=== PATIENT | male | born 1930 | race Caucasian/White ===

== ENCOUNTER → 2016-06-26 | Outpatient (CLI) | payer MEDICARE, OTHER ==
[~2016-06-26] MED LIST: AMOXICILLIN500 MG PO; ARTIFICIAL TEAR15 M2 OPHTH; ASPIRIN LO-DOSE81 MG PO; CORDARONE,PACE200 MG PO; COZAAR50 MG; COZAAR50 MG PO; ELIQUIS2.5 MG PO; HYDRODIURIL25 MG PO; IMDUR60 MG PO; LASIX40 MG PO; LEVOTHROID (S150 MCG PO; LOPRESSOR50 MG PO; MIRALAX17 GM PO; NITROSTAT0.4 MG SL; NORVASC5 MG PO; NOVOLIN-N100 UNIT/M SUB-Q; NOVOLOG FL100 UNIT/1 SUB-Q; OXYGEN M-15 INH; PEPCID20 MG PO; PROSCAR5 MG PO; PROTONIX40 MG PO; SPIRIVA HANDIHA1 KIT INH; TYLENOL EXTRA500 MG PO; ZAROXOLYN5 MG PO; ZOCOR40 MG PO; ZYLOPRIM100 MG PO
== END | disposition disaster alternative care site (69) ==
LOC: GRAD 15:22
DX: N18.4 Chronic kidney disease, stage 4 (severe) (principal); Q61.02 Congenital multiple renal cysts

== ENCOUNTER → 2016-06-26 | Outpatient (CLI) | payer MEDICARE, OTHER | END | disposition disaster alternative care site (69) | LOC: LGSMG 16:37 | DX: N18.4 Chronic kidney disease, stage 4 (severe) (principal) ==

== ENCOUNTER → 2016-08-19 | Outpatient (CLI) | payer MEDICARE, OTHER | END | disposition disaster alternative care site (69) | LOC: GRAD 08:56 | DX: M86.9 Osteomyelitis, unspecified (principal); Q89.8 Other specified congenital malformations; M85.88 Other specified disorders of bone density and structure, other site; I70.0 Atherosclerosis of aorta ==

== ENCOUNTER 2016-09-28 10:57 | Emergency (ER) | payer MEDICARE, OTHER ==
--- NOTE | ~2016-09-28 | ER ---
PATIENT'S NAME: INDIO JUAREZ [facility] AGE: 85 Y [address] ROOM: [place] [address] LOCATION: [facility] ADMIT DATE: 09/28/2016 ER/Outpatient Report DISCHARGE DATE: 09/28/2016 FAMILY PHYSICIAN: Antonio Hoover MD ATTENDING PHYSICIAN: Samantha Rushing Time of Arrival: 1057 hours. Time of Evaluation/Seen: 1112 hours. IDENTIFICATION: An 85-year-old male. CHIEF COMPLAINT: Fall. HISTORY OF PRESENT ILLNESS: The patient caught his pants on the wheelchair and fell forward and to the right, striking his head posterior right on cabinets. No loss of consciousness. He also twisted his right knee, and has a skin tear on his right arm. He has a little bit of right hip pain as well. ALLERGIES: LISINOPRIL. CURRENT MEDICATIONS: 1. Eliquis. 2. Allopurinol. 3. Imuran. 4. Amlodipine. 5. Aspirin. 6. Proscar. 7. Lasix. 8. NovoLog. 9. Imdur. 10. Levothyroxine. 11. Zaroxolyn. 12. Lopressor. 13. Nitroglycerin. 14. Protonix. 15. Artificial tears. 16. Simvastatin. MEDICAL PROBLEMS: 1. Previous right knee pain with effusion. 2. Osteomyelitis of the left wrist. PATIENT'S NAME: INDIO JUAREZ V [facility] AGE: 85 Y [address] ROOM: [place] [address] LOCATION: [facility] ADMIT DATE: 09/28/2016 ER/Outpatient Report DISCHARGE DATE: 09/28/2016 FAMILY PHYSICIAN: Anotnio Hoover MD ATTENDING PHYSICIAN: Samantha Rushing 3. Coronary artery disease. 4. Diabetes mellitus, type 2. 5. Chronic atrial fibrillation, on chronic anticoagulation. 6. Dyslipidemia. 7. Chronic kidney disease. 8. Hypertension. 9. Nocturnal hypoxemia. PAST SURGICAL HISTORY: Prior surgeries: 1. Left wrist bone excision. 2. CABG. 3. Bilateral hip surgery. 4. Multiple left heart catheterizations. 5. Tonsillectomy. 6. Clavicle surgery. 7. Bilateral cataracts. SOCIAL HISTORY: The patient lives with his daughter here in [place]. Tobacco use, denies. Alcohol use, denies. Drug use, denies. REVIEW OF SYSTEMS: All systems reviewed and negative other than what is noted in the HPI. PHYSICAL EXAMINATION: VITAL SIGNS: Height 5 feet 6 inches, weight 89 kg. Blood pressure 157/68, pulse 59, respiratory rate 16, temperature 97.7, and saturations 95% on room air. GENERAL: Pleasant male in no acute distress. HEENT: Head; normocephalic. Eyes; pupils equal and reactive to light and accommodation. Extraocular movements intact. Nose; mucosa pink. No lesions. Mouth; no lesions. Pharynx, benign. NECK: Supple. No tenderness to palpation to cervical spine. Posterior right scalp hematoma. LUNGS: Clear to auscultation. Breath sounds are equal. HEART: Regular rate and rhythm. No murmur, rub, or gallop. ABDOMEN: Soft, nondistended, and nontender. SKIN: [place], warm, and dry. The patient has a skin tear on his right upper extremity that was dressed with Vaseline gauze. No tenderness to pelvic rock. Minimal tenderness to his right hip. No palpable deformities. No bruising or ecchymosis. NEUROLOGIC: Neurovascularly, patient is alert and oriented x4. Cranial nerves 2 through 12 grossly intact. Motor strength 5/5 throughout. Sensation is intact to light touch bilaterally. The patient has a right knee effusion, PATIENT'S NAME: INDIO JUAREZ V [facility] AGE: 85 Y [address] ROOM: [place] [address] LOCATION: [facility] ADMIT DATE: 09/28/2016 ER/Outpatient Report DISCHARGE DATE: 09/28/2016 FAMILY PHYSICIAN: Antonio Hoover MD ATTENDING PHYSICIAN: Samantha Rushing tender to palpation. IMAGING STUDIES: Right knee x-ray, three-view, moderate joint effusion. No acute fracture or dislocation. Pending Radiology over-read. Right pelvis and hip; no acute findings. Head CT without contrast, normal. Cervical spine CT without contrast; degenerative changes. No acute fractures. IMPRESSION: 1. Right knee effusion and pain. 2. Right skin tear. 3. Head injury. PLAN: Head injury precautions, Jake wrap, right knee; walker or wheelchair and toe- touch weightbearing only until recheck with Dr. Allen. Ice and elevate. Tylenol for pain. Follow up with Dr. Allen on Friday. Follow up sooner if any problems or concerns. The patient and his daughter understand and agree, and all questions have been answered. MD CARLOS LIVINGSTON/dalila /[id number] d: 09/28/161917 t: 09/29/16 1449, OUTPATIENT REPORT
[~2016-09-28 10:57] MED LIST changes: -COZAAR50 MG PO
== END 2016-09-28 12:55 | disposition disaster alternative care site (69) ==
LOC: GACC 10:57
DX: S41.111A Laceration without foreign body of right upper arm, initial encounter (principal); S00.03XA Contusion of scalp, initial encounter; M25.461 Effusion, right knee; M25.561 Pain in right knee; M86.9 Osteomyelitis, unspecified; I25.10 Atherosclerotic heart disease of native coronary artery without angina pectoris; E78.5 Hyperlipidemia, unspecified; E11.22 Type 2 diabetes mellitus with diabetic chronic kidney disease; I12.9 Hypertensive chronic kidney disease with stage 1 through stage 4 chronic kidney disease, or unspecified chronic kidney disease; N18.3 Chronic kidney disease, stage 3 (moderate); E03.9 Hypothyroidism, unspecified; I48.0 Paroxysmal atrial fibrillation; Z95.1 Presence of aortocoronary bypass graft; Z90.89 Acquired absence of other organs; Z98.890 Other specified postprocedural states; Z88.8 Allergy status to other drugs, medicaments and biological substances; Z79.01 Long term (current) use of anticoagulants; Z79.82 Long term (current) use of aspirin; Z79.4 Long term (current) use of insulin; Z79.899 Other long term (current) drug therapy; W01.190A Fall on same level from slipping, tripping and stumbling with subsequent striking against furniture, initial encounter

== ENCOUNTER 2016-10-06 13:35 | Emergency (ER) | payer MEDICARE, OTHER ==
--- NOTE | ~2016-10-06 | ER ---
PATIENT'S NAME: INDIO JUAREZ V [facility] AGE: 85 Y [address] ROOM: [place] [address] LOCATION: [facility] ADMIT DATE: 10/06/2016 ER/Outpatient Report DISCHARGE DATE: 10/06/2016 FAMILY PHYSICIAN: Antonio Hoover MD ATTENDING PHYSICIAN: Layo Yeung Time of Arrival: 1335 hours. Time of Evaluation: 1340 hours. CHIEF COMPLAINT: Headache, right leg pain. HISTORY OF PRESENT ILLNESS: The patient is an 85-year-old male, who presents to the emergency department today with a chief complaint of headache and right leg pain. He reports he fell about 1 week prior to arrival. He has had pain in his right leg since he did get his knee drained by Dr. Moon, but he is complaining of some pain in his foot as well as up into his upper hip area. He also reports he has had a mild headache. It is a dull type headache. It is not sudden onset. Not the worst headache of his life. Denies any fevers or chills. No nausea or vomiting. No diarrhea or constipation. No abdominal pain. No chest pain. No shortness of breath. PAST MEDICAL HISTORY: Right knee with effusion; osteomyelitis of the left wrist; coronary artery disease; diabetes mellitus type 2; chronic atrial fibrillation, on chronic anticoagulation, Eliquis; dyslipidemia; chronic kidney disease; hypertension; nocturnal hypoxemia. PAST SURGICAL HISTORY: Left wrist bone excision, CABG, bilateral hip surgery, multiple left heart catheterization, tonsillectomy, clavicle surgery, bilateral cataracts. SOCIAL HISTORY: The patient lives with his daughter here in [place]. Denies any tobacco, alcohol, or illicit drug use. ALLERGIES: NO KNOWN DRUG ALLERGIES. MEDICATIONS: Please see list. PRIMARY CARE DOCTOR: Dr. Hoover. PATIENT'S NAME: INDIO JUAREZ V [facility] AGE: 85 Y [address] ROOM: [place] [address] LOCATION: [facility] ADMIT DATE: 10/06/2016 ER/Outpatient Report DISCHARGE DATE: 10/06/2016 FAMILY PHYSICIAN: Antonio Hoover MD ATTENDING PHYSICIAN: Layo Yeung REVIEW OF SYSTEMS: All systems are reviewed by myself and are negative with the exception of those discussed in the HPI and past medical history. PHYSICAL EXAMINATION: VITAL SIGNS: Weight 88 kg, blood pressure 125/61, pulse 68, respiratory rate 16, temperature 98.9, oxygen saturation 94% on room air. GENERAL: The patient is an 85-year-old male, who appears stated age, in no acute distress. HEENT: Normocephalic, atraumatic. Pupils are equal, round, and reactive to light. Extraocular muscles are intact. Nares are patent bilaterally. TMs are clear. Oropharynx is clear. NECK: Supple. There is no nuchal rigidity. CARDIOVASCULAR: Regular rate and rhythm. No murmurs, rubs, or gallops. LUNGS: Clear to auscultation bilaterally. No wheezes, rales, or rhonchi. ABDOMEN: Soft, nontender, and nondistended. No rebound, rigidity, or guarding. MUSCULOSKELETAL: The patient has diffuse tenderness to palpation about his right ankle and right foot. He does have some mild tenderness to palpation of the right upper femur region as the right knee is also mildly swollen. There is a bandage in place from previous aspiration. It does appear clean, dry, and intact without evidence of erythema. SKIN: Warm and dry. There are no rashes or lesions noted. LABORATORY DATA AND X-RAYS: CT scan of the brain is obtained. I have discussed results with the radiologist, is negative. X-rays are obtained. They are interpreted by myself, show no evidence of acute fracture or dislocation. Further over-read is pending. IMPRESSION: 1. Right lower extremity pain, suspect musculoskeletal. 2. Cephalgia. 3. Initial visit. EMERGENCY DEPARTMENT COURSE: The patient was brought back to the examination room. Seen and evaluated by myself. Imaging is obtained as described above. The patient's headache is a while. It is not sudden in onset. This is not worst of his life. He is low risk for subarachnoid hemorrhage. Headache has been mild ever since his injury. The patient may have had a concussion with some mild postconcussive syndrome symptoms. I have discussed this with the patient's daughter. I have asked he follows up with Dr. Moon's, Orthopedic Surgery, in 3 to 5 days for re-evaluation if he continues to have pain. I have discussed following up PATIENT'S NAME: INDIO JUAREZ V [facility] AGE: 85 Y [address] ROOM: [place], [place] [address] LOCATION: [facility] ADMIT DATE: 10/06/2016 ER/Outpatient Report DISCHARGE DATE: 10/06/2016 FAMILY PHYSICIAN: Antonio Hoover MD ATTENDING PHYSICIAN: Layo Yeung with Dr. Hoover in 2 to 3 days for re-evaluation. The patient is agreeable without further questions. DISPOSITION,: The patient discharged home in good condition. DO EYAL CHURCH/dalila /[id number] d: 10/06/162020 t: 10/07/16 1538, OUTPATIENT REPORT
== END 2016-10-06 14:56 | disposition disaster alternative care site (69) ==
LOC: GACC 13:35
DX: R51 Headache (principal); M25.571 Pain in right ankle and joints of right foot; M25.561 Pain in right knee; M79.651 Pain in right thigh; I12.0 Hypertensive chronic kidney disease with stage 5 chronic kidney disease or end stage renal disease; N18.5 Chronic kidney disease, stage 5; E11.22 Type 2 diabetes mellitus with diabetic chronic kidney disease; I25.10 Atherosclerotic heart disease of native coronary artery without angina pectoris; I48.2 Chronic atrial fibrillation; M86.9 Osteomyelitis, unspecified; E78.5 Hyperlipidemia, unspecified; Z79.4 Long term (current) use of insulin; Z79.899 Other long term (current) drug therapy; Z95.5 Presence of coronary angioplasty implant and graft; Z98.890 Other specified postprocedural states; Z95.9 Presence of cardiac and vascular implant and graft, unspecified; Z79.01 Long term (current) use of anticoagulants; Z90.89 Acquired absence of other organs

== ENCOUNTER 2016-11-05 13:48 | Inpatient (IN) | payer MEDICARE, OTHER ==
[~2016-11-05] VITALS: Ht 167.6 cm; Wt 86.1 kg
--- NOTE | ~2016-11-05 | HP ---
PATIENT'S NAME: INDIO JUAREZ V [facility] AGE: 86 Y [address] ROOM: [place] [address] LOCATION: [facility] ADMIT DATE: 11/05/2016 History & Physical DISCHARGE DATE: FAMILY PHYSICIAN: Antonio Hoover MD ATTENDING PHYSICIAN: DAVON LOPEZ DATE OF SERVICE: CHIEF COMPLAINT: Low blood pressure. HISTORY OF PRESENT ILLNESS: An 86-year-old gentleman with a past medical history of chronic kidney disease stage 3 secondary to diabetes and hypertension, who presented to the emergency department complaining of low blood pressure for the last couple of days. He has been to his primary care physician at the [facility] and they down-titrated a couple of his blood pressure medications, but he continued to experience low blood pressure at home. He is very meticulous about keeping his records of I and O's as well as low pressures. On reviewing the records, it appears that he had couple of readings in the 90s, especially in the morning. In the emergency department, his initial blood pressure was adequate at 120, but later dipped down to the systolic in the 80s. On inquiry, he is saying that he is comfortable, he said he sometimes does get blurry vision other than that, some mild headache today; otherwise, no dizziness, no chest pain, no unusual shortness of breath, no sputum production. Baseline cough. He denied any abdominal pain, any burning on urination, constipation, diarrhea, or any extremity swelling. He did not endorse having PND, orthopnea, or leg swelling. PAST MEDICAL HISTORY: 1. Coronary artery disease, status post CABG with multiple PCIs. 2. Type 2 diabetes mellitus, requiring insulin. 3. Paroxysmal atrial fibrillation. 4. Hyperlipidemia. 5. Chronic kidney disease, stage 3. 6. Hypertension. 7. Nocturnal hypoxia. 8. Chronic respiratory failure. 9. Chronic obstructive pulmonary disease. FAMILY HISTORY: Significant for coronary artery disease in father. SOCIAL HISTORY: No ongoing toxic habits. PATIENT'S NAME: INDIO JUAREZ V [facility] AGE: 86 Y [address] ROOM: [place] [address] LOCATION: [facility] ADMIT DATE: 11/05/2016 History & Physical DISCHARGE DATE: FAMILY PHYSICIAN: Antonio Hoover MD ATTENDING PHYSICIAN: DAVON LOPEZ PAST SURGICAL HISTORY: Past CABGs and bilateral hips. REVIEW OF SYSTEMS: All other systems were reviewed and were negative except what is mentioned in the HPI. MEDICATIONS: Being reconciled PHYSICAL EXAMINATION: VITAL SIGNS: Blood pressure on my encounter 120/70, 52, afebrile, and saturating 97% on room air. GENERAL: No acute distress. Alert and oriented x3. HEENT: Head: Atraumatic, normocephalic. Eyes: Nonicteric. No pallor. Oropharynx: Moist mucous membranes. CARDIOVASCULAR: Variable S1, normal S2. No murmurs, gallops, or rubs. LUNGS: Clear to auscultation bilaterally. ABDOMEN: Soft, nontender, and nondistended. Bowel sounds present. EXTREMITIES: No clubbing, cyanosis, or edema. SKIN: Mild bruises noted on the left pineda. MUSCULOSKELETAL: No muscle tenderness or swelling noted. NEUROLOGIC: Cranial nerves 2 through 12 intact. No motor or sensory deficit noted. PSYCHIATRY: Normal affect, mood, and speech. LYMPHATICS: No lymphangiitis or lymphadenopathy noted. ENDOCRINE: No thyromegaly or cushingoid features noted. DIAGNOSTIC DATA: EKG done in the emergency department showed atrial fibrillation with controlled ventricular rates and old left bundle branch block. The other labs of significant were a BMP which showed a creatinine of 3.8 with a baseline creatinine around 2.8. Rest of the labs was pretty much unremarkable. TSH and T4 were done, which were normal. ASSESSMENT AND PLAN: 1. Acute kidney injury on chronic kidney disease, stage 3. 2. Iatrogenic hypotension secondary to medications. 3. Paroxysmal atrial fibrillation, on long-term anticoagulation. 4. Hyperlipidemia. 5. Chronic kidney disease, stage 3. 6. Chronic obstructive pulmonary disease. 7. Chronic respiratory failure, requiring 2 L of oxygen at nighttime. PLAN: We are going to admit this patient. We are going to at this point resuscitate him with intravenous fluids and watch his creatinine improve. Strict I and PATIENT'S NAME: INDIO JUAREZ V [facility] AGE: 86 Y [address] ROOM: [place] [address] LOCATION: [facility] ADMIT DATE: 11/05/2016 History & Physical DISCHARGE DATE: FAMILY PHYSICIAN: Antonio Hoover MD ATTENDING PHYSICIAN: DAVON LOPEZ O's will be monitored. Once the med reconciliation is done, we will titrate down his blood pressure medication. If needed, Nephrology consultation will be obtained. Continue his apixaban. Continue supplemental oxygen. Further changes in the management will depend on his progress in the hospital. The patient is full code. No chemical DVT prophylaxis, as the patient is already receiving Eliquis. MD ELLIS SANDERS/modl /[id number] D: [id number] T: [id number] HISTORY & PHYSICAL
--- NOTE | ~2016-11-05 | ER ---
PATIENT'S NAME: INDIO JUAREZ V [facility] AGE: 86 Y [address] ROOM: [place] [address] LOCATION: [facility] ADMIT DATE: 11/05/2016 ER/Outpatient Report DISCHARGE DATE: FAMILY PHYSICIAN: Antonio Hoover MD ATTENDING PHYSICIAN: DAVON WRIGHT TIME OF ARRIVAL: 1351. TIME OF EXAMINATION: 1352. CHIEF COMPLAINT: Low blood pressure. HISTORY OF PRESENT ILLNESS: The patient states that he has been seen at [facility] for the past couple of weeks with some blood pressure issues. He reports that two weeks ago, they changed his losartan from being one tablet daily to half a tablet twice a day. He was seen there yesterday, and they changed his amlodipine from 1-1/2 tablets daily to just one tablet at bedtime. He says today, he felt weak, a little dizzy, and so he took his blood pressure at lunchtime and noticed that it was low at home. He had his daughter bring him to the ER. He denies having any chest pain, has not felt short of breath, and has not had a cough. He denies being nauseated. No vomiting. He has not had any problems with his blood sugars. He has not felt feverish or chills. He denies any change in his bowel or bladder pattern. ALLERGIES: HE HAS NO KNOWN ALLERGIES. CURRENT MEDICATIONS: On his chart and reviewed by me. PAST MEDICAL HISTORY: 1. Congestive heart failure. 2. Insulin-dependent diabetes. 3. Hypertension. 4. Heart disease. 5. Chronic kidney disease. 6. He has had an [place] with cardiac stents. PAST SURGERIES: 1. Coronary artery bypass graft in 1989. 2. He had left wrist Staph in March of 2016. PATIENT'S NAME: INDIO JUAREZ V [facility] AGE: 86 Y [address] ROOM: [address] [address] LOCATION: [facility]U ADMIT DATE: 11/05/2016 ER/Outpatient Report DISCHARGE DATE: FAMILY PHYSICIAN: Antonio Hoover MD ATTENDING PHYSICIAN: DAVON WRIGHT SOCIAL HISTORY: He lives at home. His daughter does live with him. He denies the use of tobacco, drugs, or alcohol. REVIEW OF SYSTEMS: Negative other than those mentioned in the HPI. PHYSICAL EXAMINATION: VITAL SIGNS: He weighed 86.6 kg. Blood pressure was 120/57, pulse was 70, respirations were 19, temperature was 98, and O2 saturation was 99% on room air. GENERAL: He is awake, alert, and oriented x4. SKIN: Needles, warm, and dry. PULMONARY: Respirations are even and nonlabored. Lung sounds are clear throughout. HEART: Regular rate and rhythm. ABDOMEN: Soft and nondistended. Bowel sounds are present. EMERGENCY DEPARTMENT COURSE: Saline lock was initiated. EKG was reviewed with Dr. Phoenix. He did review with the previous EKGs, and did not feel there were any changes to it. His CBC is within normal limits. On his Chem panel, sodium is 138, potassium is 3.8, chloride is 102, and BUN is 90 with a creatinine of 3.8; his last creatinine was 2.8. Cardiac enzymes are within normal limits. His proBNP was 435. His blood pressure did drop down to 88/50. We did start some IV fluids and normal saline at 150 an hour. His blood pressure remained stable after that. Heart rate remained at 64 the entire time. His O2 saturations were above 90% on room air. He continued to deny having any pain or discomfort. Dr. Wright was contacted regarding the patient. He did come and evaluate the patient. IMPRESSION: 1. Acute on chronic kidney disease. 2. Hypotension. PLAN: The patient will be placed in the hospital for the care of the hospitalist. He and his daughter verbalized understanding. CRESCENCIO RO APRN FOR MD RAIEN VASQUEZ/dalila PATIENT'S NAME: INDIO JUAREZ V [facility] AGE: 86 Y [address] ROOM: [address] [address] LOCATION: [facility]U ADMIT DATE: 11/05/2016 ER/Outpatient Report DISCHARGE DATE: FAMILY PHYSICIAN: Antonio Hoover MD ATTENDING PHYSICIAN: DAVON WRIGHT /[id number] d: 11/06/16 0431 t: 11/19/16 1001, OUTPATIENT REPORT
--- NOTE | ~2016-11-05 | DS ---
PATIENT'S NAME: INDIO JUAREZ V [facility] AGE: 86 Y [address] ROOM: [id number] [place], [place] [address] LOCATION: [facility]PCU ADMIT DATE: 11/05/2016 Discharge Summary DISCHARGE DATE: 11/06/2016 FAMILY PHYSICIAN: Antonio Hoover MD ATTENDING PHYSICIAN: Maribel Wright FINAL DIAGNOSES: 1. Acute kidney injury on stage 3 chronic kidney disease. 2. Iatrogenic hypotension. 3. Coronary artery disease. 4. Diabetes mellitus type 2, insulin using. 5. Paroxysmal atrial fibrillation, on long-term anticoagulation with Eliquis. 6. Chronic nocturnal hypoxemia. 7. Chronic obstructive pulmonary disease. Please see the history and physical dictated by Dr. Wright for details of admission. In short, the patient had presented with low blood pressures. He normally runs in the 120s, but it dipped down into the 80s and 90s systolic. He presented to the emergency room because he had some blurred vision associated with it at that time. He was found to have a creatinine of 3.8, his baseline was in the 2.8-3 range. The patient did share that he had seen his primary care provider earlier in the day on Friday and adjustments had been made in the medications. LABORATORY DATA: On admission, sodium was 138, 139 on discharge. Potassium on admission 3.8, discharge 3.7. BUN on admission was 90, discharge 84. Creatinine on admission was 3.8, discharge 3.2. Magnesium on admission was 2.8. White blood cell count on admission was 7.9 with a hemoglobin of 11, hematocrit 34.1, and platelet count 166. Hemoglobin has remained in the stable range at 10.2 at discharge. Chest x-ray on admission did not show any acute infiltrate. HOSPITAL COURSE: The patient presented to the emergency room with complaints of hypotension and was found to have worsening of his acute kidney injury on his stage 3 chronic kidney disease. It was felt this was due to the low blood pressures as well as just being on significant diuretics for his chronic heart failure symptoms. He was placed on telemetry, and his heart rates were monitored. He was given IV hydration. His medications were held. Orthostatic blood pressures were done, and they did not show any evidence of drop with standing. On the morning after admission, his creatinine was down to 3.2, his blood pressures were in the 140s-150s range, and he was feeling much better. Orthostatic blood pressures were repeated. His lying blood pressure was 181/76, standing 166. His heart rate remained stable, and he was asymptomatic. He did ambulate in the gómez without any difficulty. It was PATIENT'S NAME: INDIO JUAREZ V [facility] AGE: 86 Y [address] ROOM: [place] [address] LOCATION: [facility]PCU ADMIT DATE: 11/05/2016 Discharge Summary DISCHARGE DATE: 11/06/2016 FAMILY PHYSICIAN: Antonio Hoover MD ATTENDING PHYSICIAN: Maribel Wright felt that he would be stable for discharge with followup with his primary care provider. He is to continue his diet. Follow up with Dr. Hoover with a renal panel in 3-5 days. Follow up with Dr. Argueta, his farrowing worker, as already scheduled. MEDICATIONS: 1. Apixaban 2.5 mg twice daily. 2. Aspirin 81 mg daily. 3. Synthroid 150 mcg daily. 4. Amiodarone 300 mg daily. 5. Amlodipine 5 mg at bedtime. He is to hold it if his blood pressure is less than 120. 6. Imdur 60 mg daily. He is to hold this if his systolic blood pressure is less than 140. 7. Proscar 5 mg daily. 8. Lasix 40 mg twice daily. 9. Metoprolol 50 mg at bedtime. 10. Simvastatin 20 mg at bedtime. 11. Nitroglycerin 0.4 mg as needed. 12. NPH insulin 28 units in the morning, 10 units at bedtime. 13. He takes NovoLog 10 units in the morning and 8 units at noon. He does have a sliding scale that he uses as well. 14. Extra Strength Tylenol 500 mg 3 times daily. 15. Allopurinol 100 mg daily. 16. Artificial Tears one drop 3 times daily. 17. Metolazone 5 mg daily 30 minutes before his Lasix. 18. Protonix 40 mg twice daily. 19. Acetaminophen 500 mg every 4 hours as needed. 20. O2 at 2 L per nasal cannula at night. 21. Losartan 25 mg at bedtime. 22. NovoLog 8 units with his evening meal. 23. Spiriva inhaler one 18 mcg inhalation daily. Essentially, we reinforced these changes made in his medications by his primary care provider and increased the parameters on his Imdur. Based on previous hospitalization, the patient is very prone to have significant edema. It was felt it was important to continue his diuretics. NATASHA MACIAS MD LAW/modl PATIENT'S NAME: INDIO JUAREZ V [facility] AGE: 86 Y [address] ROOM: [place] [address] [facility] ADMIT DATE: 11/05/2016 Discharge Summary DISCHARGE DATE: 11/06/2016 FAMILY PHYSICIAN: Antonio Hoover MD ATTENDING PHYSICIAN: Maribel Wright /[id number] CC: MD NEERU Neves MD d: 11/07/16 2228 t: 11/13/16 1115, DISCHARGE SUMMARY
[2016-11-05 14:32] LABS: BASOPHIL % 0.1 %; EOSINOPHIL # 0.4 K/uL (0.0-0.5); EOSINOPHIL % 4.5 %; HEMATOCRIT 34.1 % (33.0-50.0); IMMATURE GRANULOCYTE # 0.1 K/uL (0.0-0.3); IMMATURE GRANULOCYTE % 0.8 %; LYMPHOCYTE # 1.9 K/uL (0.8-4.0); LYMPHOCYTE % 23.5 %; MCH 31.4 pg (27.0-34.0); MCHC 32.3 gm/dL (32.0-36.5); MCV 97.4 fl (83.0-98.0); MONOCYTE # 1.2 K/uL (0.0-1.0); MONOCYTE % 14.5 %; NEUTROPHIL # (ANC) 4.5 K/uL (1.4-9.0); NEUTROPHIL % 56.6 %; NRBC % 0 /100WBC (0-0.00); PLATELET COUNT 166 K/uL (150-450); RDW-CV 17.2 % (11.9-14.6); WBC 7.9 K/uL (4.0-11.0)
[2016-11-05 14:39] LABS: INR - (THERAPEUTIC) 1.01 (0.92-1.07); PROTIME 10.6 SECONDS (9.8-11.4); PTT 28 SECONDS (25-32)
[2016-11-05 14:55] LABS: ALBUMIN 3.5 gm/dL (3.5-5.0); ALK PHOS 122 IU/L (33-138); ALT 65 IU/L (12-78); ANION GAP 14.8 (10.0-19.0); AST 54 IU/L (10-40); BLOOD UREA NITROGEN 90 mg/dL (6-24); CALCIUM 8.7 mg/dL (8.5-10.5); CHLORIDE 102 mMol/L (96-110); CO2 25 mMol/L (22-32); CPK 62 IU/L (35-332); CREATININE 3.8 mg/dL (0.6-1.3); MAGNESIUM 2.5 mg/dL (1.8-2.6); POTASSIUM 3.8 mMol/L (3.7-5.1); SODIUM 138 mMol/L (135-145); TOTAL BILIRUBIN 0.3 mg/dL (0.0-1.5); TOTAL PROTEIN 7.2 g/dL (6.0-8.4)
[2016-11-05] MEDS ORDERED: COZAAR50 MG PO (17:39)
[2016-11-05] MEDS ORDERED: NOVOLOG FL100 UNIT/1 SUB-Q (17:50)
[2016-11-05] MEDS ORDERED: SPIRIVA HANDIHA1 KIT INH (17:52)
--- NOTE | 2016-11-05 18:21 | NUR ---
ADMITTED TO PCU FROM ED @ 1700 FOR HYPOTENSION AND ACUTE ON CHRONIC KIDNEY DISEASE. 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 LAST FALL 09/28/16. ALLERGY TO LISINOPRIL. PIV TO RIGHT FA. SCD'S APPLIED.
[2016-11-06 04:40] LABS: BASOPHIL % 0.1 %; EOSINOPHIL # 0.3 K/uL (0.0-0.5); EOSINOPHIL % 4.2 %; HEMATOCRIT 31.6 % (33.0-50.0); HEMOGLOBIN 10.2 g/dL (11.0-16.0); IMMATURE GRANULOCYTE # 0.1 K/uL (0.0-0.3); IMMATURE GRANULOCYTE % 0.7 %; LYMPHOCYTE # 1.3 K/uL (0.8-4.0); LYMPHOCYTE % 17.4 %; MCH 31.1 pg (27.0-34.0); MCHC 32.3 gm/dL (32.0-36.5); MCV 96.3 fl (83.0-98.0); MONOCYTE # 1.2 K/uL (0.0-1.0); MONOCYTE % 16.6 %; MPV 10.9 fl (9.4-12.4); NEUTROPHIL # (ANC) 4.5 K/uL (1.4-9.0); NRBC % 0 /100WBC (0-0.00); PLATELET COUNT 147 K/uL (150-450); RBC 3.28 M/uL (3.50-5.50); WBC 7.4 K/uL (4.0-11.0)
[2016-11-06 04:57] LABS: ANION GAP 11.7 (10.0-19.0); CALCIUM 8.3 mg/dL (8.5-10.5); CREATININE 3.2 mg/dL (0.6-1.3); POTASSIUM 3.7 mMol/L (3.7-5.1)
--- NOTE | 2016-11-06 05:08 | NUR ---
Significant Event: Pt A&Ox3. VS stable, remains on RA during the day. Pt wears O2 @ night; however, there were times when pt would dip down to the mid 70's and would have to be woken up to raise O2 levels. No c/o pain. 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 Pressures came back up to 0300 assessment, BP was 163/75. Still good UOP. Follow up: Continue plan of care.
--- NOTE | 2016-11-06 11:34 | NUR ---
Introduced self and care management services to patient and daughter at bedside. Pt lives at home with with dementia and 2 daughters who help care for mom and him at home. Plans on going home on discharge, denies anticipating dc planning needs right now. Will follow and assist with dc planning as needs identified.
--- NOTE | 2016-11-06 16:43 | NUR ---
DISCHARGE: ORTHOSTATIC BP'S NEGATIVE. PATIENT AMBULATED IN HALLS PER DR. MACIAS'S REQUEST. DENIED PAIN. PIV REMOVED. DISCHARGE INSTRUCTIONS REVIEWED. MED CHANGES DISCUSSED. INFORMATION HANDOUTS ON DIABETIC, RENAL, LOW NA, LOW FAT, LOW CHOLESTEROL GIVEN. FOLLOW-UP APPOINTMENTS REVIEWED. NO FURTHER QUESTIONS AT THIS TIME. DAUGHTER PRESENT AT TIME OF INSTRUCTIONS AND DISCHARGE. TAKEN TO [facility] BY WHEELCHAIR @ 1610 BY STUDENT NURSE.
== END 2016-11-06 16:10 | disposition disaster alternative care site (69) | DRG 683 ==
LOC: GMED 13:48 → GPCU 15:52
PROVIDERS: Emergency Medicine; ADMIT Internal Medicine
DX: N17.9 Acute kidney failure, unspecified (principal); J96.10 Chronic respiratory failure, unspecified whether with hypoxia or hypercapnia; I95.89 Other hypotension; I48.0 Paroxysmal atrial fibrillation; E11.9 Type 2 diabetes mellitus without complications; E78.5 Hyperlipidemia, unspecified; I12.9 Hypertensive chronic kidney disease with stage 1 through stage 4 chronic kidney disease, or unspecified chronic kidney disease; I25.10 Atherosclerotic heart disease of native coronary artery without angina pectoris; J44.9 Chronic obstructive pulmonary disease, unspecified; N18.3 Chronic kidney disease, stage 3 (moderate)
CPT/HCPCS: J7030; J7120